=== PATIENT | female | born 1950 | race Caucasian/White ===

== ENCOUNTER 2018-03-02 13:10 | Observation (INO) | payer OTHER ==
--- NOTE | 2018-03-02 14:44 | ED ---
Abdominal Pain/Female - HPI Summary HPI Summary: Pt presents w/ RUQ pain radiating around upper ab last night. Started as bloating then got worse - tried Tums w/o relief. Went to bed to wait for it to pass but was painful all night. Progressed to RUQ as previously mentioned. No N/ V but had an episode 2 weeks ago where she had same pain with vomiting - felt better after. Has had different color BM that time along w/ dark urine (urine was dark again today). She noticed this as she drinks lots of water each day and urine is always clear. She has been struggling with a large gallbladder stone since 2014. She reports she has had this similar episode about 6 times over the past 3 years. She tends to ignore it and let it pass however she came in today as she was nervous that it may return and not go away (worse this time) . Wanted to make sure she didn't have an obstruction or an infection in the area. She feels fine now and in fact had didn't breakfast this morning (oatmeal ) without pain, nausea or vomiting. Her dinner last night however entailed polenta w/ butter and parmesean cheese + cottage cheese + kefir at 19:00. - History of Current Complaint Chief Complaint: EDAbdPain Stated Complaint: TENDERNESS ON RT SIDE ABD Time Seen by Provider: 03/02/18 14:43 Hx Obtained From: Patient Pain Intensity: 2 Allergies/Adverse Reactions: Allergies Allergy/AdvReac Type Severity Reaction Status Date / Time No Known Allergies Allergy Verified 03/02/18 13:20 PMH/Surg Hx/FS Hx/Imm Hx Previously Healthy: Yes Endocrine/Hematology History: Denies: Hx Diabetes Cardiovascular History: Reports: Other Cardiovascular Problems/Disorders - abnormal ECG - recently seen by Dr. Mazariegos - no issues to be concerned Denies: Hx Hypertension, Hx Pacemaker/ICD GI History: Reports: Hx Gall Bladder Disease - large gallbladder stone History: Denies: Hx Acute Renal Failure, Hx Chronic Renal Failure, Hx Renal Disease Sensory History: Denies: Hx Hearing Aid Psychiatric History: Denies: Hx Panic Disorder - Cancer History Hx Chemotherapy: No Hx Radiation Therapy: No - Surgical History Surgery Procedure, Year, and Place: tonsils age 1 Infectious Disease History: No Infectious Disease History: Denies: Hx Clostridium Difficile, Hx Hepatitis, Hx Human Immunodeficiency Virus (HIV), Hx of Known/Suspected MRSA, Hx Shingles, Hx Tuberculosis, Hx Known/ Suspected VRE, Hx Known/Suspected VRSA, History Other Infectious Disease, Traveled Outside the [place] in Last 30 Days - Social History Occupation: Employed Full-time - professor at [employer] Lives: With Family Alcohol Use: Occasionally Hx Substance Use: No Substance Use Type: Reports: None Hx Tobacco Use: No Smoking Status (MU): Former Smoker Review of Systems Constitutional: Negative Negative: Fever, Chills, Fatigue Negative: Chest Pain Negative: Shortness Of Breath Positive: Abdominal Pain Positive: see HPI. Negative: burning, dysuria Skin: Negative Neurological: Negative Psychological: Normal All Other Systems Reviewed And Are Negative: Yes Physical Exam Triage Information Reviewed: Yes Vital Signs On Initial Exam: Initial Vitals Temp Pulse Resp BP Pulse Ox 99.1 F 81 16 182/84 98 03/02/18 13:14 03/02/18 13:14 03/02/18 13:14 03/02/18 13:14 03/02/18 13:14 Vital Signs Reviewed: Yes Appearance: Positive: Well-Appearing, No Pain Distress, Well-Nourished Skin: Positive: Warm, Skin Color Reflects Adequate Perfusion, Dry Head/Face: Positive: Normal Head/Face Inspection Eyes: Positive: Normal, EOMI, Conjunctiva Clear - anicteric sclera ENT: Positive: Normal ENT inspection, Hearing grossly normal, Pharynx normal - mucosa moist Neck: Positive: Supple Respiratory/Lung Sounds: Positive: Clear to Auscultation, Breath Sounds Present Cardiovascular: Positive: Normal, S1, S2 Abdomen Description: Positive: Nontender, No Organomegaly, Soft, Other: - neg redmond's sign Bowel Sounds: Positive: Present Musculoskeletal: Positive: Normal, Strength/ROM Intact Neurological: Positive: Normal, Sensory/Motor Intact, Alert, Oriented to Person Place, Time, CN Intact II-III Psychiatric: Positive: Normal - pleasant, in good spirits Diagnostics - Vital Signs Vital Signs Temp Pulse Resp BP Pulse Ox 03/02/18 13:14 99.1 F 81 16 182/84 98 - Laboratory Result Diagrams: 03/02/18 15:04 03/02/18 15:04 Lab Statement: Any lab studies that have been ordered have been reviewed, and results considered in the medical decision making process. Abdominal Pain Fem Course/Dx - Course Course Of Treatment: U/S reveals 4.9 cm gallstone w/o cholecystitis/fluid. Labs reveal AST/ALT in 400's w/ bili 2.4. Clinical exam is unremarkable at this time. Discussed w/ Dr. Araujo who feels her stone could have temporarily obstructed her bile duct resulting in elevated LFT's. Recommends repeat LFT's in 2 days and consult w/ gen surgery. Spoke w/ Dr. Cruz who agrees pt needs repeat labs and would like her inpt for monitoring. Pt agrees w/ plan. Spoke w/ Dr. Dinh who agrees to consult. Pt in stable condition at time of transition of care. - Diagnoses Provider Diagnoses: Gallstone, Elevated liver enzymes Discharge - Sign-Out/Discharge Documenting (check all that apply): Patient Departure - Discharge Plan Condition: Stable Disposition: ADMITTED TO [facility] - Billing Disposition and Condition Condition: STABLE Disposition: Admitted to [facility]
--- NOTE | 2018-03-02 15:03 | RAD ---
INDICATION: Right upper quadrant pain. COMPARISON: Comparison is made with a prior abdominal ultrasound from September 18, 2014. TECHNIQUE: Multiple real-time images of the right upper quadrant were obtained. FINDINGS: There is a large 4.9 cm calculus present within the gallbladder. No gallbladder wall thickening or pericholecystic fluid is present. No positive sonographic Ashley sign was present. No intra or extrahepatic ductal distention is present. The common bile duct measured 0.5 cm in diameter. The liver is normal in size without significant focal abnormality. The pancreas is partially obscured by overlying bowel gas. The right kidney is normal in size without evidence for hydronephrosis. IMPRESSION: CHOLELITHIASIS WITHOUT EVIDENCE FOR ACUTE CHOLECYSTITIS.
[2018-03-02 15:16] LABS: ABS Basophils 0 10^3/ul (0-0.2); ABS Eosinophils 0.1 10^3/ul (0-0.6); ABS Lymphocytes 1.1 10^3/ul (1.0-4.8); ABS Monocytes 0.3 10^3/ul (0-0.8); ABS Neutrophils 2.3 10^3/ul (1.5-7.7); ABS Nucleated RBC 0 10^3/ul; Eosinophil % 1.5 % (0-6); Hematocrit 41 % (35-47); Hemoglobin 13.9 g/dl (12.0-16.0); Lymphocyte % 29.8 % (25-47); Mean Corpuscular HGB Conc 34 g/dl (31-36); Mean Corpuscular Hemoglobin 31 pg (27-31); Mean Corpuscular Volume 90 fL (80-97); Mean Platelet Volume 8.2 um3 (7.4-10.4); Nucleated Red Blood Cells % 0; Platelet Count 199 10^3/ul (150-450); Red Blood Count 4.52 10^6/ul (4.00-5.40); Red Cell Distribution Width 15 % (10.5-15); White Blood Count 3.8 10^3/ul (3.5-10.8)
[2018-03-02 15:34] LABS: EGFR Non-African American 74.3 (>60)
[2018-03-02] MEDS ORDERED: Morphine INJ* 2 MG/ML 1 ML SYRINGE (TWO MG - NEW SYRINGE VERSION) IV PRN (17:10)
[2018-03-02] MEDS ORDERED: Acetaminophen TAB* 325 MG PO PRN (17:10)
[2018-03-02] MEDS ORDERED: Ondansetron INJ* 2 MG/ML VIAL IV PRN (17:10)
[2018-03-02] MEDS ORDERED: Senna TAB PO PRN (17:10)
[2018-03-02] MEDS ORDERED: Enoxaparin(*) 40 MG/0.4 ML SYR SUBCUT SCH (18:00)
--- NOTE | 2018-03-02 22:21 | HP ---
CC: Dr. Talley HISTORY AND PHYSICAL: ADDENDUM: DATE OF ADMISSION: 03/02/18 PRIMARY CARE PROVIDER: Dr. Talley. This case was discussed and reviewed with Danita Hilton NP. Ms. Peña is a 67-year-old lady with no significant medical history who presented to the emergency room with complaints of right upper quadrant heaviness/pain. She has had 6 prior episodes and this last one happened last night after a meal of polenta with butter and parmesan cheese. Her workup in the emergency room included increase in her LFTs with a total bilirubin of 2.4, AST of 421, ALT of 455, but no lipase elevation. A gallbladder ultrasound showed cholelithiasis without evidence for acute cholecystitis. The common bile duct was measured at 0.5 cm in diameter. The patient does not appear to have acute cholecystitis or another signs of infection at this time. She is afebrile with stable vital signs. No leukocytosis. Her presentation is certainly compatible with biliary cholic, but the question is if she has choledocholithiasis also. The plan is to admit her as observation to the medical floor. We will give symptomatic treatment and repeat her LFTs in the morning. If her LFTs are trending up, she will require a GI consultation for possible MRCP/ERCP. If her LFTs are trending down and she has improvement of her symptoms, may be her evaluation could be continued as outpatient. [id number]/CPS #: [id number] MTDD
--- NOTE | 2018-03-02 22:46 | HP ---
ATTENDING ADDENDUM NOW INCLUDED ON THIS REPORT CC: Dr. Talley * HISTORY AND PHYSICAL: DATE OF ADMISSION: 03/02/18. PRIMARY CARE PROVIDER: Dr. Talley. ATTENDING PHYSICIAN: Dr. Aristeo Guy * (dictated by Danita Hilton NP). CHIEF COMPLAINT: Right upper quadrant discomfort. HISTORY OF PRESENT ILLNESS: Ms. Peña is a 67-year-old female with a past medical history of cholelithiasis, who presented to the emergency room today with complaints of right upper quadrant discomfort. At this point, she denies any actual pain, but reports a history bloating and "heaviness." This began last night around 7:30pm after she had a dinner consisting of polenta with butter, parmesan cheese, cottage cheese, and kefir. She experienced some dark urine, and felt as though she was having some heartburn. She took some Tums, which she feels resolved the heartburn. She was able to sleep throughout the night, and woke up this morning without any bloating or discomfort. She states that she has had this discomfort approximately 6 times over the last 3 years. The most recent time being approximately 2 weeks ago, and at that point, the discomfort was accompanied by dark urine and one light colored stool. She did vomit during that episode and subsequently, the pain resolved on its own. She saw her PCP after the last episode during which time it was recommended that she have an abdominal ultrasound and some lab work which she never completed. She ultimately presented to the emergency room today because she was concerned about this continued discomfort and had not followed up one her PCP's orders from 2 weeks ago. In the emergency room, the patient continues to be pain free. She was found to have elevated LFTs, and a gallbladder ultrasound revealing cholelithiasis. The ED provider spoke with Dr. Araujo, who felt that she should have repeat LFTs and a consult with General Surgery. They also consulted with Dr. Cruz, who recommended the patient be admitted to the hospital for monitoring. The hospitalist service was asked to evaluate for admission. PAST MEDICAL HISTORY: 1. Cholelithiasis. 2. Abnormal EKG (the patient recently saw Dr. Mazariegos, who had no concerns). PAST SURGICAL HISTORY: 1. Tonsillectomy. HOME MEDICATIONS: None. ALLERGIES: None. FAMILY HISTORY: Mother with unknown arrhythmia, at the age of 79. Father at the age of 88 from natural causes. SOCIAL HISTORY: The patient reports a remote history of "social" tobacco use in her 20s. She reports occasional alcohol use, approximately 1 drink per month. Denies recreational drug use. She works as a professor at [employer]. The patient's , Wesley, will be her surrogate decision maker in the event she is unable to make her own decisions. REVIEW OF SYSTEMS: A 14-point review of systems was performed and all the pertinent positive and negative findings are in the HPI. All other systems are negative. PHYSICAL EXAMINATION GENERAL: Ms. Peña is a well-developed, well-nourished, white woman sitting up in bed, in no acute distress. She appears her stated age. VITAL SIGNS: Temp 99.1, heart rate 81, respiratory rate 16, oxygen saturation 98 % on room air, blood pressure 182/84. HEENT: Head is normocephalic and atraumatic. Visual rose are grossly intact. Pupils are equal, round, and reactive to light and accommodation. Extraocular movements intact. Sclerae without icterus. Hearing is grossly intact. Oral mucous membranes are moist and without lesions. NECK: Full range of motion. Trachea midline. No lymphadenopathy. RESPIRATORY: Symmetrical chest expansion. No chest wall deformities. Lungs are clear to auscultation throughout. No rhonchi, wheezes or rubs. No accessory muscle use. CARDIOVASCULAR: Regular rate and rhythm. S1, S2 present. No murmurs, rubs or gallops. ABDOMEN: Soft, nontender to palpation. Negative Ashley's sign. Bowel sounds are normoactive throughout. No bruits appreciated. EXTREMITIES: Skin is warm and smooth bilaterally. No edema. No clubbing or cyanosis. Pedal pulses are 2+ bilaterally. MUSCULOSKELETAL: Full range of motion. No pain or deformities. NEUROLOGIC: Awake, alert, and oriented x4. Cranial nerves II through XII are grossly intact. Moves all extremities. SKIN: Grossly intact without lesions. Multiple varicose veins to bilateral lower extremities. DIAGNOSTIC STUDIES/LAB DATA: WBC is 3.8, RBC is 4.52, hemoglobin 13.9, hematocrit 41, platelets 199. Sodium 140, potassium 3.6, chloride 105, carbon dioxide 28, BUN 10, creatinine 0.77, glucose 95. Total bilirubin 2.4. AST 421 , ALT 455, alk phos 158, lipase 10. Gallbladder ultrasound reads as cholelithiasis without evidence for acute cholecystitis. KG personally reviewed shows normal sinus rhythm with a rate of 73. ASSESSMENT AND PLAN: Ms. Peña is a 67-year-old female with a past medical history of cholelithiasis, who presented to the emergency room today with complaints of recurrent episodes of right upper quadrant discomfort, and was found to have elevated liver enzymes. The patient will be admitted observation to the medical floor for: 1. Elevated liver enzymes. There is known cholelithiasis, and choledocholithiasis cannot be ruled out because of her markedly elevated AST and ALT. The patient is asymptomatic at this time, but will be monitored overnight with plans to recheck LFTs in the morning. If her liver enzymes are trending down in the morning, it is likely safe for the patient to be discharged and follow up with general surgery as an outpatient. For the time being, I will place her on low-fat diet. I have ordered pain medications should she require them. 2. Elevated blood pressure. The patient had an elevated blood pressure reading in the emergency room though she does not have a history of hypertension. This very well could be a stress response. We will continue to monitor her blood pressure overnight, although I will not medicate her at this time. 3. Fluids, electrolytes, and nutrition. The patient may have a low-fat diet. 4. Code status. The patient is a full code. 5. DVT prophylaxis. According to the DVT Risk Assessment, the patient scores a 3 making her high risk. I will place her on subcu Lovenox. TIME SPENT: Approximately 50 minutes was spent on this admission, greater than half of that spent with the patient obtaining my history, performing my physical examination, and reviewing the plan of care. The case has been reviewed with my attending, Dr. Guy, who is in agreement with the plan of care. DANITA HILTON NP ADDENDUM: DATE OF ADMISSION: 03/02/18 PRIMARY CARE PROVIDER: Dr. Talley. This case was discussed and reviewed with Danita Hilton NP. Ms. Peña is a 67-year-old lady with no significant medical history who presented to the emergency room with complaints of right upper quadrant heaviness/pain. She has had 6 prior episodes and this last one happened last night after a meal of polenta with butter and parmesan cheese. Her workup in the emergency room included increase in her LFTs with a total bilirubin of 2.4, AST of 421, ALT of 455, but no lipase elevation. A gallbladder ultrasound showed cholelithiasis without evidence for acute cholecystitis. The common bile duct was measured at 0.5 cm in diameter. The patient does not appear to have acute cholecystitis or another signs of infection at this time. She is afebrile with stable vital signs. No leukocytosis. Her presentation is certainly compatible with biliary cholic, but the question is if she has choledocholithiasis also. The plan is to admit her as observation to the medical floor. We will give symptomatic treatment and repeat her LFTs in the morning. If her LFTs are trending up, she will require a GI consultation for possible MRCP/ERCP. If her LFTs are trending down and she has improvement of her symptoms, may be her evaluation could be continued as outpatient. ARISTEO Guy MD [id number]/CPS #: [id number]/CPS #: [id number] NELLY
[2018-03-03 06:44] LABS: EGFR Non-African American 72.2 (>60)
[2018-03-03 07:50] VITALS: BP 141/69
[2018-03-03 09:45] LABS: ABS Basophils 0 10^3/ul (0-0.2); ABS Eosinophils 0.2 10^3/ul (0-0.6); ABS Lymphocytes 1.3 10^3/ul (1.0-4.8); ABS Monocytes 0.4 10^3/ul (0-0.8); ABS Neutrophils 2.1 10^3/ul (1.5-7.7); ABS Nucleated RBC 0 10^3/ul; Eosinophil % 4.4 % (0-6); Hematocrit 40 % (35-47); Hemoglobin 13.5 g/dl (12.0-16.0); Lymphocyte % 31.6 % (25-47); Mean Corpuscular HGB Conc 34 g/dl (31-36); Mean Corpuscular Hemoglobin 31 pg (27-31); Mean Corpuscular Volume 91 fL (80-97); Mean Platelet Volume 8.7 um3 (7.4-10.4); Nucleated Red Blood Cells % 0.2; Platelet Count 194 10^3/ul (150-450); Red Blood Count 4.43 10^6/ul (4.00-5.40); Red Cell Distribution Width 14 % (10.5-15)
--- NOTE | 2018-03-03 10:51 | DS ---
DICTATION ENDS ABRUPTLY - PLEASE COMPLETE THIS DICTATION CC: Dr. Talley; Dr. Allison. DISCHARGE SUMMARY: DATE OF ADMISSION: 03/02/18 DATE OF DISCHARGE: 03/03/18 PRINCIPAL DISCHARGE DIAGNOSIS: Cholelithiasis. SECONDARY DISCHARGE DIAGNOSES: 1. ____ DICTATION ENDS HERE [id number]/[facility] #: [id number] [facility]
--- NOTE | 2018-03-05 03:36 | DS ---
CC: Dr. Dick Allison; Dr. Talley. * DISCHARGE SUMMARY: DATE OF ADMISSION: 03/02/18. DATE OF DISCHARGE: 03/03/18 PRINCIPAL DISCHARGE DIAGNOSIS: Cholelithiasis. HOSPITAL COURSE BY PROBLEM: Ms. Peña presented with 1 episode of right upper quadrant heaviness that she described as discomfort but not pain. She had a known history of cholelithiasis for which she followed Dr. Allison a few years ago, but opted for nonoperative management for the time being. She had not had another episode of biliary colic for a year. However, the day prior to admission, she had eaten a meal of polenta with cheese and butter and had this episode of right upper quadrant fullness and presented to the emergency department. At admission, her ALT was 455, her alk phos was 158, her AST was 421 and her total bilirubin was 2.4. Gallbladder ultrasound at admission showed a 4.9 cm calculus within the gallbladder, but no gallbladder wall thickening. No pericholecystic fluid. No sonographic Ashley sign, no intra or extrahepatic ductal dilation and the common bile duct measured 0.5 cm. She was admitted for observation and her LFTs were trended. The following day, her LFTs were trending down and her discharge AST was 211. His discharge ALT was 345. Her alk phos was 143. Her total bilirubin was 1.2 and she had no further discomfort or pain during her admission. She had no fever during her admission and no leukocytosis or leukopenia. The case was discussed with Dr. Cruz who agreed that outpatient surgical followup was appropriate. I discussed this with Ms. Peña and she agrees that she would like to pursue elective cholecystectomy and will follow up with Dr. Allison in the next few days. She is instructed to return to the emergency department should this discomfort returned or should she develop any fevers. PHYSICAL EXAM: At the time of discharge, temperature 98.2, heart rate 72, respiratory rate 16, pulse ox 98% on room air, blood pressure 141/69. General: Alert, well-appearing female in no distress. HEENT: Pupils equal, round, and reactive to light. Oral mucosa is moist. Neck: No cervical adenopathy. No JVP. Chest: Regular rate and rhythm. No murmurs. PMI is nondisplaced. Lungs are clear bilaterally. Abdomen: Soft, nontender, nondistended. Negative Ashley sign. Liver is nonpalpable. Extremities: No edema. No rashes. No ulcers. TIME SPENT: Thirty minutes was spent on this discharge. [id number]/[facility] #: [id number] MTDD
== END 2018-03-03 11:00 | disposition home or self-care (01) ==
LOC: ED 13:10 → MED 16:57
PROVIDERS: ADMIT Internal Medicine; ATTEND Internal Medicine
CPT/HCPCS: 36415; 76705; 80048; 80053; 80076; 82150; 83690; 85025; 93005; A9270-GY; J1650

== ENCOUNTER 2018-03-28 10:43 | Day surgery (SDC) | payer OTHER ==
[~2018-03-28 10:43] MED LIST: Buffered Lidocaine 0.9% SYRIN* 5 ML/SYR SYRINGE INTRADERM ONE; Dexamethasone TAB* 4 MG PO ONE; DiMENhydriNATE IV* 50 MG/ML VIAL IV PUSH PRN; Famotidine IV* 10 MG/ML 2 ML (20 mg) IV ONE; Morphine VIAL* 4 MG/ML VIAL (1 ml vial) IV PRN; Naloxone* 0.4 MG/ML 1 ML VIAL IV PRN; Ondansetron TAB* 4 MG PO ONE; PROCHLORPERAZINE INJ 5 MG/ML 2 ML VIAL IV PRN; fentaNYL* 50 MCG/ML 2 ML VIAL (100 MCG VIAL) IV PRN; oxyCODONE/Acetamin 5/325 MG* TAB PO PRN
[2018-03-28] MEDS ORDERED: Famotidine IV* 10 MG/ML 2 ML (20 mg) ONE (10:55)
[2018-03-28] MEDS ORDERED: ceFAZolin 2 GM PREMIX in ORs 2 GM/50 ML BAG IVPB ONE (10:55)
[2018-03-28] MEDS ORDERED: Ketorolac INJ* 30 MG/ML 1 ML VIAL ONE (10:55)
[2018-03-28] MEDS ORDERED: Ondansetron ODT TAB* 4 MG ONE (10:55)
[2018-03-28] MEDS ORDERED: Dexamethasone TAB* 4 MG ONE (10:56)
[2018-03-28] MEDS ORDERED: Atracurium* 10 MG/ML 10 ML VIAL ONE (12:32)
[2018-03-28] MEDS ORDERED: Midazolam* 1 MG/ML 5 ML VIAL (5 MG) ONE (12:32)
[2018-03-28] MEDS ORDERED: fentaNYL* 50 MCG/ML 2 ML VIAL (100 MCG VIAL) ONE ×2 (12:32→14:45)
[2018-03-28] MEDS ORDERED: KETAMINE HCL* 50 MG/ML 10 ML VIAL ONE (12:32)
[2018-03-28] MEDS ORDERED: Propofol* 10 MG/ML 20 ML BTL IV PUSH ONE (14:23)
[2018-03-28] MEDS ORDERED: Glycopyrrolate IV* 0.2 MG/ML 1 ML VIAL ONE (14:23)
[2018-03-28] MEDS ORDERED: Lidocaine 2% PF * 5 ML VIAL ONE (14:23)
[2018-03-28] MEDS ORDERED: PROCHLORPERAZINE INJ 5 MG/ML 2 ML VIAL ONE (14:23)
[2018-03-28] MEDS ORDERED: Neostigmine Methylsulfate* 1 MG/ML 10 ML VIAL (1 mg/ml) ONE (14:23)
[2018-03-28 17:16] VITALS: BP 121/64
--- NOTE | 2018-03-29 07:20 | OP ---
CC: Kenney Armas MD; Dr. Talley OPERATIVE REPORT: DATE OF OPERATION: 03/28/18 DATE OF : 46 SURGEON: Kenney Armas MD COMPUTER SYSTEMS TECHNOLOGY INSTRUCTOR: Merrick. ANESTHESIOLOGIST: Dr. Roger. ANESTHESIA: General anesthetic, local infiltration. PRE-OP DIAGNOSIS: Symptomatic cholelithiasis. POST-OP DIAGNOSIS: Symptomatic cholelithiasis. OPERATIVE PROCEDURE: Laparoscopic cholecystectomy. DESCRIPTION OF PROCEDURE: The patient was supine on the operative table. After adequate general ane sthetic, compression stockings, Shanda Hugger warmer, and intravenous antibiotics, the abdomen was prep ped with antiseptic, draped in a sterile fashion. Local infiltrative anesthesia was administered and a small supraumbilical incision was created, and blunt port cannula was used to enter the abdominal cavity. Insufflation was carried out with carbon dioxide. Additional cannulae of 12-mm subxiphoid a nd 5-mm in right upper quadrant and right anterior axillary line were placed through small stab wound s under direct vision. The gallbladder was distended and a little bit thick wall, a little fibrotic. Ultimately, the artery and the duct were readily identified, clipped and divided. There was also a s mall posterior arterial branch, which was clipped and divided. The gallbladder was taken off the live r bed using electrocautery. Hemostasis was good. There was no spillage. The gallbladder was remove d through the subxiphoid port, which needed to be enlarged quite a bit due to the size of the stone. The stone was approximately 4 x 6 cm. The operative site was in good condition. Hemostasis was good . The cannulae were removed, pneumoperitoneum allowed to escape. The fascia of the 2 large incision s closed with 0 Vicryl. Additional local anesthetic was put in the subxiphoid incision, which had be en enlarged to about 4 cm. Closure of the skin was accomplished using 5-0 Vicryl followed by Steri-S trips. She tolerated the procedure well, was awakened, and brought to Recovery in good condition. N o complications. No drains. Sponge and instrument counts correct. Estimated blood loss 20 mL. [id number]/[facility] #: [id number]
== END 2018-03-28 17:22 | disposition home or self-care (01) ==
LOC: OR 10:43
PROVIDERS: ATTEND Surgery
DX: K80.10 Calculus of gallbladder with chronic cholecystitis without obstruction (principal); R94.31 Abnormal electrocardiogram [ECG] [EKG]; Z87.891 Personal history of nicotine dependence; I10 Essential (primary) hypertension
CPT/HCPCS: 36415; 86803; 88304; A9270-GY; J0690; J0780; J1885; J2250; J2704; J2710; J3010; J8540

== ENCOUNTER 2019-04-09 09:13 | Emergency (ER) | payer OTHER ==
--- NOTE | 2019-04-09 10:45 | ED ---
Neck Pain - HPI Summary HPI Summary: Pt is a 68 y/o F presenting to the ED with a chief complaint of neck issues. She states about 2 days ago she noticed two swollen lumps on her bilateral neck that were not painful but she was worried about them. She reports hx herpetic lesions to lip and noticed one a few days ago. She denies fever, back pain, weight loss, cough, SOB, CP, or abd pain. - History of Current Complaint Chief Complaint: EDNeckComplaint Stated Complaint: GENERAL ILLNESS Time Seen by Provider: 04/09/19 09:55 Hx Obtained From: Patient Onset/Duration Of Injury/Symptoms: Hours Mechanism Of Injury: No Known Trauma Timing: Constant, Lasting Days Onset/Duration: Gradual Onset, Started days ago Severity Initially: Mild Severity Currently: None Pain Intensity: 0 Pain Scale Used: 0-10 Numeric Aggravating Factors: Nothing Alleviating Factors: Nothing Associated Signs & Symptoms: Positive: Swelling. Negative: Fever - Allergies/Home Medications Allergies/Adverse Reactions: Allergies Allergy/AdvReac Type Severity Reaction Status Date / Time No Known Allergies Allergy Verified 03/28/18 11:12 Home Medications: Home Medications NK [No Home Medications Reported] 04/09/19 [History Confirmed 04/09/19] PMH/Surg Hx/FS Hx/Imm Hx Previously Healthy: Yes Endocrine/Hematology History: Denies: Hx Diabetes Cardiovascular History: Denies: Hx Hypertension, Hx Pacemaker/ICD Comment Only: Other Cardiovascular Problems/Disorders - HAD ABNORMAL EKG SAW IN DECEMBER 2017 Respiratory History: Reports: Hx Asthma - POSSIBLE HAS AN INHALER DOESN'T USE GI History: Reports: Hx Gall Bladder Disease - large gallbladder stone, Other GI Disorders - HAS HAD ELEVATED LIVER ENZYMES History: Denies: Hx Acute Renal Failure, Hx Chronic Renal Failure, Hx Renal Disease Sensory History: Reports: Hx Contacts or Glasses - GLASSES Denies: Hx Hearing Aid Opthamlomology History: Reports: Hx Contacts or Glasses - GLASSES Psychiatric History: Denies: Hx Panic Disorder - Cancer History Hx Chemotherapy: No Hx Radiation Therapy: No - Surgical History Surgery Procedure, Year, and Place: tonsils age 1 Hx Anesthesia Reactions: No Infectious Disease History: No Infectious Disease History: Denies: Hx Clostridium Difficile, Hx Hepatitis, Hx Human Immunodeficiency Virus (HIV), Hx of Known/Suspected MRSA, Hx Shingles, Hx Tuberculosis, Hx Known/ Suspected VRE, Hx Known/Suspected VRSA, History Other Infectious Disease, Traveled Outside the [place] in Last 30 Days - Family History Known Family History: Negative: Diabetes - Social History Alcohol Use: Occasionally Hx Substance Use: No Substance Use Type: Reports: None Hx Tobacco Use: No Smoking Status (MU): Former Smoker Have You Smoked in the Last Year: No Review of Systems Negative: Fever, Other - weight loss Positive: Other - swollen lumps on neck Negative: Chest Pain Negative: Shortness Of Breath Negative: Abdominal Pain Negative: Myalgia - back pain All Other Systems Reviewed And Are Negative: Yes Physical Exam - Summary Physical Exam Summary: Constitutional: Well-developed, Well-nourished, Alert. (-) Distressed Skin: Warm, Dry, herpetic lesion to upper lip HENT: Normocephalic; Atraumatic Eyes: Conjunctiva normal Neck: Musculoskeletal ROM normal neck. (-) JVD, (-) Stridor, (-) Nuchal rigidity Cardio: Rhythm regular, rate normal, Heart sounds normal; Intact distal pulses; Radial pulses are 2+ and symmetric. (-) Murmur Pulmonary/Chest wall: Effort normal. (-) Respiratory distress, (-) Wheezes, (-) Rales Abd: Soft, (-) tenderness, (-) Distension, (-) Guarding, (-) Rebound Musculoskeletal: (-) Edema Lymph: Bilateral submandibular swollen lymph nodes, R larger than L. R posterior cervical LN Neuro: Alert, Oriented x3 Psych: Mood and affect Normal Triage Information Reviewed: Yes Vital Signs On Initial Exam: Initial Vitals Temp Pulse Resp BP Pulse Ox 98.3 F 88 16 179/101 99 04/09/19 09:17 04/09/19 09:17 04/09/19 09:17 04/09/19 09:17 04/09/19 09:17 Vital Signs Reviewed: Yes Procedures - Sedation Patient Received Moderate/Deep Sedation with Procedure: No Diagnostics - Vital Signs Vital Signs Temp Pulse Resp BP Pulse Ox 04/09/19 09:17 98.3 F 88 16 179/101 99 - Laboratory Result Diagrams: 04/09/19 11:07 04/09/19 11:07 Lab Statement: Any lab studies that have been ordered have been reviewed, and results considered in the medical decision making process. Re-Evaluation - Re-Evaluation First Eval Re-Evaluation Time: 11:40 Comment: labs unremarkable Neck Course/Dx - Course Course Of Treatment: 68 y/o F p/w LAD. PE w: LAD submandibular and post cervical R side. Herpetic lesion to upper lip. Likely viral reactive LAD. Will check CBC, given Valtrex 2g BID for 1 day for herpes labialis - Diagnoses Provider Diagnoses: Lymphadenopathy, Oral herpes Discharge ED - Sign-Out/Discharge Documenting (check all that apply): Patient Departure - Discharge Plan Condition: Stable Disposition: HOME Patient Education Materials: Lymphadenopathy (ED), Oral Herpes Simplex Virus Infections (ED) Referrals: Deshaun Talley MD [Primary Care Provider] - Additional Instructions: You were seen in the emergency department for neck swelling. You likely have lymphadenopathy which can be a reaction to a virus. Your labs were normal. Please take Valtrex 2 g twice a day for 1 day to help with your herpes of the lip. If any studies were not completed at the time of discharge you will be called with the relevant results. Please follow up with your primary care doctor in next 2-3 days and return to emergency department for worsening or concerning symptoms. It was a pleasure taking care of you today. - Billing Disposition and Condition Condition: STABLE Disposition: Home - Attestation Statements Document Initiated by Francy: Yes Documenting Scribe: Nhi Briscoe Provider For Whom Francy is Documenting (Include Credential): Klaus Rucker MD. Scribe Attestation: Nhi Diallo, scribed for Klaus Rucker MD. on 04/09/19 at 1145. Scribe Documentation Reviewed: Yes Provider Attestation: The documentation as recorded by the Nhi watts accurately reflects the service I personally performed and the decisions made by , Klaus Rucker MD. Status of Scribe Document: Viewed
[2019-04-09 11:12] LABS: ABS Monocytes 0.3 10^3/ul (0-0.8); Eosinophil % 1.1 %; Hematocrit 41 % (35-47); Hemoglobin 13.6 g/dL (12.0-16.0); Lymphocyte % 22.9 %; Mean Corpuscular HGB Conc 34 g/dL (31-36); Mean Corpuscular Hemoglobin 31 pg (27-31); Mean Corpuscular Volume 91 fL (80-97); Mean Platelet Volume 7.9 fL (7.4-10.4); Nucleated Red Blood Cells % 0.1; Platelet Count 173 10^3/uL (150-450); Red Blood Count 4.45 10^6 /uL (3.70-4.87); Red Cell Distribution Width 14 % (10-15); White Blood Count 4.4 10^3/uL (3.5-10.8)
[2019-04-09 11:34] LABS: Albumin 4.2 g/dL (3.2-5.2); Albumin/Globulin Ratio 1.6 (1-3); Calcium 9.5 mg/dL (8.6-10.3); EGFR African American 92.4 (>60); EGFR Non-African American 76.4 (>60); Globulin 2.6 g/dL (2-4); Potassium 3.9 mmol/L (3.5-5.0); Total Bilirubin 0.4 mg/dL (0.2-1.0); Total Protein 6.8 g/dL (6.4-8.9)
[2019-04-09 12:18] VITALS: BP 127/79
== END 2019-04-09 12:18 | disposition home or self-care (01) ==
LOC: ED 09:13
DX: R59.0 Localized enlarged lymph nodes (principal); B00.2 Herpesviral gingivostomatitis and pharyngotonsillitis
CPT/HCPCS: 36415; 80053; 85025; 99282